=== PATIENT | female | born 1950 | race Caucasian/White ===

== ENCOUNTER → 2020-09-25 | Outpatient (CLI) | payer MEDICARE, BC, OTHER ==
[~2020-09-25] MED LIST: CENT1TAB PO; DILT-65 PO; ELIQ5TAB PO; EQL50TAB2 PO; FLEC1TAB PO; LOSA50TA88 PO; MAGN1CAP PO; METO1TAB32 PO; METO1TAB87 PO; METO25TA4 PO; PRAV20TA2 PO; PROC10TA4 PO; PROT1TAB2 PO; VIT1CAPS11 PO
--- NOTE | 2020-09-25 13:03 | RADONC.CN ---
Radiation Oncology Hx/Consult Radiation Oncology Consult Date of Service: Sep 25, 2020 Pt Identifier Jayna Montenegro is a 70 year old female with a history of right adnexal GIST s/p resection as well as left breast cancer [id number](sn)M0 ER/FL- HER2+ Grade 2. She is s/p neoadjuvant herceptin/taxol followed by lumpectomy and SLNB on 08/26/20. She continues on kadcycla. She is seen for consideration of adjuvant RT. Diagnosis/Treatment History Oncologic History 03/06/20 Screening mammogram with left breast lesion 03/07/20 Biopsy IDC grade 2 ER/FL- HER2+ 03/25/20 MRI with left breast enhancing mass 04/14/20 PET-CT enhancing mass in the right pelvis 04/16/20 MRI pelvis 4 cm enhancing cystic solid right adnexal mass 05/01/20 Resection of pelvic mass revealing GIST CKIT+ 05/20/20 Started neoadjuvant taxol/herceptin 08/05/20 Completed week 12 of taxol/herceptin. 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 Hair starting to regrow. She has some pain under the left arm, comes and goes. No pain or swelling in the breast. No swelling in the LUE. Appetite good and weight stable. Has kadcyla infusions q3w scheduled. Plays golf. Past Medical History: Afib Basal cell cancer GERD Prior GIB HTN Past Surgical History: Appendectomy BL total knee replacement Carpal tunnel release Family History: Father bladder cancer Social History: 20 pack year former smoker quit 1990s Drinks 1-2 drinks 1 day per week Allergies / Meds Allergies: Coded Allergies: No Known Allergies (Unverified , 11/13/14) Home Meds Reported Medications Prochlorperazine Maleate (Prochlorperazine Maleate) 10 Mg Tablet, 10 MG PO Q6H PRN for NAUSEA OR VOMITING, #30 TAB 3 Refills 09/25/20 Metoprolol Succinate (Metoprolol Succinate) 25 Mg Tab.er.24h, 25 MG PO DAILY for 30 Days, #30 TAB 4/29/21 Pantoprazole Sodium (Protonix) 40 Mg Tablet.dr, 40 MG PO DAILY for 30 Days, #30 TAB 09/25/20 Vit D3/Vit K2/[place] Ext (Osteoblox Cf Capsule) 25 Mcg-20 Mcg-250 Mg Capsule, 1 EACH PO, CAP 09/25/20 Vitamin B Complex (Vitamin B Complex) 1 Each Tablet, 1 TAB PO DAILY for 30 Days, #30 TAB 09/25/20 Magnesium Oxide (Magnesium) 500 Mg Capsule, 500 MG PO BID for constipation for 30 Days, #60 CAP 09/25/20 Multivit-Min/FA/Lycopen/Lutein (Centrum Silver Tablet) 1 Each Tablet, 1 TAB PO DAILY for 30 Days, #30 TAB 09/25/20 Pravastatin Sodium (Pravastatin Sodium) 20 Mg Tablet, 20 MG PO QPM for 30 Days, #30 TAB 09/25/20 Flecainide Acetate (Flecainide Acetate) 100 Mg Tablet, 100 MG PO BID for 30 Days, #60 TAB 09/25/20 Losartan Potassium (Losartan Potassium) 50 Mg Tablet, 50 MG PO DAILY, TAB 09/25/20 Diltiazem HCl (Diltiazem 24Hr ER (Xr)) 180 Mg Cap.er.deg, 180 MG PO 09/25/20 Apixaban (Eliquis) 5 Mg Tablet, 5 MG PO BID for 30 Days, #60 TAB 09/25/20 Discontinued Reported Medications Metoprolol Tartrate (Metoprolol Tartrate) 25 Mg Tablet, 25 MG PO BID for 30 Days, #60 TAB 09/25/20 Metoprolol Tartrate (Metoprolol Tartrate) 25 Mg Tablet, 25 MG PO BID for 30 Days, #60 TAB 09/25/20 Review of Systems Constitutional: Denies: Chills, Fever, Night Sweats Eyes: Denies: Pain, Vision change HEENT: Denies: Head Aches, Dysphagia, Sore Throat Skin: Denies: Rash, Lesions, Bruising Pulmonary: Denies: Dyspnea, Cough Cardiovascular: Denies: Chest Pain, Palpitations, Edema Breast: Denies: New Breast Lumps / Masses, Nipple Retraction, Breast Skin Ch anges, Breast Pain or Tenderness Gastrointestinal: Denies: Nausea, Vomiting, Abdominal Pain, Diarrhea Genitourinary: Denies: Dysuria, Frequency, Incontinence Hematologic: Denies: Bruising, Petecchia, Enlarged Lymph Nodes Musculoskeletal: Denies: Neck pain, Back pain Neurological: Reports: Numbness; Denies: Weakness, Incoordination Psych: Reports: Mood Normal; Denies: Memory Issues Vital Signs HT 64" Wt 144 lbs T 97.6 P 71 RR 18 BP 141/81 O2 95% Pain 0 Fatigue 1 General Exam: Positive: Alert, Cooperative, No Acute Distress Eye Exam: Positive: PERRLA, EOMI ENT EXAM: Positive: Mucous membr. moist/pink, Pharynx Normal Neck Exam: Negative: Thyromegaly, Lymphadenopathy Chest Exam: Positive: Normal air movement; Negative: Rales, Rhonchi, Wheezing Heart Exam: Positive: Rate Normal, Regular Rhythm Breast Exam: Positive: Symmetric Bilaterally (Mild ptosis, sebhorreic keratoses and nevi scattered around the chest. Right breast WNL, no masses. Left breast inferolateral palpable surgical site, no nodules. No left axillary nodules. No LUE swelling) Abdomen Exam: Positive: Soft Extremity Exam: Negative: Edema Skin Exam: Positive: Nl turgor and temperature; Negative: Rash Neuro Exam: Positive: Normal Gait, Normal Speech, Cranial Nerves 3-12 NL Psych Exam: Positive: Mental status NL, Mood NL, Memory Intact Diagnostic and Laboratory Diagnostic Review Radiologic images, relevant labs and pathology reports were personally reviewed and discussed with Ms. Montenegro. Assessment and Plan Impression Ms. Montenegro is a 70 year old female with a history of right adnexal GIST s/p resection as well as left breast cancer [id number](sn)M0 ER/FL- HER2+ Grade 2. She is s/p neoadjuvant herceptin/taxol followed by lumpectomy and SLNB on 08/26/20. She continues on kadcycla. She is seen for consideration of adjuvant RT. Stage Stage IA left lower outer quadrant breast cancer [id number](sn)M0 ER/FL- HER2+ grade 2 Performance Status ECOG 0 Plan We had an extensive discussion with Ms. Montenegro regarding the diagnosis at hand and available therapeutic options. She is doing well post-operatively. Hoping to start her golf league soon. She has favorable anatomy for prone technique RT, with the intention to reduce heart and lung dose. She states she was very comfortable during her breast MRI, and so thinks she would tolerate prone RT well. The alternative would be DIBH in this situation. For treatment given her receptor status and residual disease post-chemo, I recommend whole breast RT 40 Gy in 15 fractions followed by 10 Gy in 5 fraction tumor bed boost. We discussed the logistics of receiving radiation therapy in detail including th e need for a 1-time planning session. This can occur next week. We reviewed the side effects of treatment including fatigue, skin reaction, late fibrosis, and cardiopulmonary toxicities. After discussing the risks, benefits and alternatives to radiation therapy, Ms. Montenegro was amenable to pursuing radiotherapy. All questions were answered to the patient's satisfaction. She has q3w chemotherapy in [place], but infusions are only 1 day per cycle, therefore we should be able to easily accommodate any scheduling conflicts. We instructed the patient that if there were any questions,concerns or changes in clinical status in the interim to contact us. Recommendations Left whole breast RT 40 Gy in 15 fractions + 10 Gy in 5 fraction tumor bed boost Prone treatment Simulation in the next week Billing Statement Total time of [40] minutes was spent preparing for the visit [1], obtaining HPI [3], examining the patient [4], reviewing diagnostic tests [4], discussing man agement options [20], coordinating care [1], and writing this note [7]. JACKSON HARP MD Sep 25, 2020 13:03
== END ==
LOC: M ONCR 10:28
PROVIDERS: ATTEND General Practice
DX: C50.912 Malignant neoplasm of unspecified site of left female breast (principal)

== ENCOUNTER 2020-10-24 07:45 | Outpatient (RCR) | payer MEDICARE, BC, OTHER | END 2020-10-27 | LOC: M ONCR 07:45 | PROVIDERS: ATTEND General Practice | DX: C50.512 Malignant neoplasm of lower-outer quadrant of left female breast (principal) ==

== ENCOUNTER 2020-11-19 11:03 | Outpatient (RCR) | payer MEDICARE, BC, OTHER | END 2020-11-26 | LOC: M ONCR 11:03 | PROVIDERS: ATTEND General Practice | DX: C50.512 Malignant neoplasm of lower-outer quadrant of left female breast (principal) ==

== ENCOUNTER → 2021-01-20 | Outpatient (CLI) | payer MEDICARE, BC, OTHER ==
--- NOTE | 2021-01-20 15:09 | RADENCPD ---
Date/Time of Encounter Date of Encounter: Jan 20, 2021 Time of Encounter: 15:05 Encounter Chelsea came in for a skin check today. She reports hyperpigmentation and some swelling of the left breast now ~3 months removed from completion of treatment. On exam there is CTCAE grade 1 hyperpigmentation of the left breast. There is non-tender dependent edema and slight warmth of the left inferior breast, no masses or lumps. No fibrosis. She denies fevers/chills/nausea/vomiting/pain. I explained that this dependent edema and hyperpigmentation are normal sequelae of RT. I encouraged her to elevate the breast as much as able when laying down, use ice, compression (such as sports bra) and judicious use of anti- inflammatories. She has been told by her surgeon to delay her screening MRI, I told her now 3 months out, that I see no contraindication to MRI from the slight edema as confounding changes are highly unlikely at this latency, however I defer to Dr. Taylor. She will see me as scheduled in April 2021, or sooner if needed. JACKSON HARP MD Jan 20, 2021 15:09
== END ==
LOC: M ONCR 13:25
PROVIDERS: ATTEND General Practice
DX: C50.512 Malignant neoplasm of lower-outer quadrant of left female breast (principal); L57.9 Skin changes due to chronic exposure to nonionizing radiation, unspecified; Z92.3 Personal history of irradiation

== ENCOUNTER → 2021-05-20 | Outpatient (CLI) | payer MEDICARE, BC, OTHER ==
--- NOTE | 2021-05-20 11:45 | RADONC ---
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 She is s/p neoadjuvant herceptin/taxol followed by lumpectomy and SLNB on 08/26/20. She then completed adjuvant WBI 40 Gy in 15 fractions + 10 Gy in 5 fraction tumor bed boost 10/14/20-11/19/20. She continues on single agent herceptin. Diagnosis/Treatment History Oncologic History 03/06/20 Screening mammogram with left breast lesion 03/07/20 Biopsy IDC grade 2 ER/ND- HER2+ 03/25/20 MRI with left breast enhancing mass 04/14/20 PET-CT enhancing mass in the right pelvis 04/16/20 MRI pelvis 4 cm enhancing cystic solid right adnexal mass 05/01/20 Resection of pelvic mass revealing GIST CKIT+ 05/20/20 Started neoadjuvant taxol/herceptin 08/05/20 Completed week 12 of taxol/herceptin. 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 No complaints related to systemic therapy at this time. Has been to PT/OT for some upper chest swelling and tenderness, much improved now. She has no swelling in the breast, notes some skin pigment changes, as well as evolution of a mold on the left central breast, darkened in color +/- enlargement. She follows with dermatology in [place], has a history of prior skin cancer, and dysplastic moles removed. She is however, leaving for [facility] in the coming days, plan is to return north in August 2021. She does not have a derm in [place] and would like one. Mammogram earlier this month was negative. Current Therapy Herceptin Stage Stage IA left lower outer quadrant breast cancer [id number](sn)M0 ER/ND- HER2+ grade 2 Social History: 20 pack year former smoker quit 1990s Drinks 1-2 drinks 1 day per week Allergies / Meds Allergies: Coded Allergies: No Known Allergies (Unverified , 11/13/14) Home Meds Reported Medications Prochlorperazine Maleate (Prochlorperazine Maleate) 10 Mg Tablet, 10 MG PO Q6H PRN for NAUSEA OR VOMITING, #30 TAB 3 Refills 09/25/20 Metoprolol Succinate (Metoprolol Succinate) 25 Mg Tab.er.24h, 25 MG PO DAILY for 30 Days, #30 TAB 09/25/20 Pantoprazole Sodium (Protonix) 40 Mg Tablet.dr, 40 MG PO DAILY for 30 Days, #30 TAB 09/25/20 Vit D3/Vit K2/[place] Ext (Osteoblox Cf Capsule) 25 Mcg-20 Mcg-250 Mg Capsule, 1 EACH PO, CAP 09/25/20 Vitamin B Complex (Vitamin B Complex) 1 Each Tablet, 1 TAB PO DAILY for 30 Days, #30 TAB 09/25/20 Magnesium Oxide (Magnesium) 500 Mg Capsule, 500 MG PO BID for constipation for 30 Days, #60 CAP 09/25/20 Multivit-Min/FA/Lycopen/Lutein (Centrum Silver Tablet) 1 Each Tablet, 1 TAB PO DAILY for 30 Days, #30 TAB 09/25/20 Pravastatin Sodium (Pravastatin Sodium) 20 Mg Tablet, 20 MG PO QPM for 30 Days, #30 TAB 09/25/20 Flecainide Acetate (Flecainide Acetate) 100 Mg Tablet, 100 MG PO BID for 30 Days, #60 TAB 09/25/20 Losartan Potassium (Losartan Potassium) 50 Mg Tablet, 50 MG PO DAILY, TAB 09/25/20 Diltiazem HCl (Diltiazem 24Hr ER (Xr)) 180 Mg Cap.er.deg, 180 MG PO 09/25/20 Apixaban (Eliquis) 5 Mg Tablet, 5 MG PO BID for 30 Days, #60 TAB 09/25/20 Review of Systems Review of Systems Constitutional: Denies: Fatigue, Weight Loss Breast: Reports: Breast Skin Changes, Breast Pain or Tenderness; Denies: New Breast Lumps / Masses, Nipple Retraction, Nipple Discharge Pulmonary: Denies: Dyspnea Cardiovascular: Denies: Chest Pain, Edema Gastrointestinal: Denies: Abdominal Pain Musculoskeletal: Denies: Arm pain Neurological: Denies: Weakness, Numbness Psych: Reports: Mood Normal Physical Examination Vital Signs Wt 151.6 lbs T 96.1 P 61 RR 17 BP 120/78 O2 97% Pain 0 Fatigue 0 General Exam: Alert, Cooperative, No Acute Distress Eye Exam: PERRLA EOMI ENT EXAM: Atraumatic Neck Exam: Supple Breast Exam: Symmetric Bilaterally, Skin Changes (Hyperpigmentation of the left breast present); Negative: Lumps or Masses (Palpable left sided loop recorder inferomedially), Nipple Retraction, Nipple Discharge Abdomen Exam: Soft Extremity Exam: Negative: Edema Skin Exam: Nl turgor and temperature, Lesion (On the skin of the left central breast there is a 0.5 cm dark flat irregularly margined mole.) Neuro Exam: Normal Gait, Normal Speech, Cranial Nerves 3-12 NL Psych Exam: Mental status NL Diagnostic and Laboratory Diagnostic Review Radiologic images, relevant labs and pathology reports were personally reviewed and discussed with Ms. Montenegro. Assessment and Plan Impression Assessment Ms. 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 She is s/p neoadjuvant herceptin/taxol followed by lumpectomy and SLNB on 08/26/20. She then completed adjuvant WBI 40 Gy in 15 fractions + 10 Gy in 5 fraction tumor bed boost 10/14/20-11/19/20. She continues on single agent herceptin. She is doing well from a breast cancer standpoint with no evidence of disease on exam. She does have some mild fibrosis of the left breast as well as hyperpigmentation which does not affect symmetry significantly. Her mammogram this month was negative. More concerning today is a mole on the left central breast which she says has been evolving over recent months as she has been more aware of left breast changes s/p cancer treatment. I think the mole looks dysplastic and given her history of prior skin cancers, I think she should have this lesion and a full skin exam in the coming months. Problem is that she is relocating to [place] for the Winter, therefore I will refer her to a pump house technician in the [facility] area to facilitate the evaluation of the mole. She agreed to referral. I will see her back in October 2021 for ongoing follow up and survivorship care. Performance Status ECOG 0 Plan Follow up in 6 months Referral to derm in [place] placed Ms. Montenegro was encouraged to call with questions or concerns in the interim period. Billing Statement Total time of [34] minutes was spent preparing for the visit [2], obtaining HPI [6], examining the patient [6], reviewing diagnostic tests [1], discussing management options [6], coordinating care [6], and writing this note [7]. JACKSON HARP MD May 20, 2021 11:45
== END ==
LOC: M ONCR 10:16
PROVIDERS: ATTEND General Practice
DX: C50.512 Malignant neoplasm of lower-outer quadrant of left female breast (principal); Z92.3 Personal history of irradiation; Z87.891 Personal history of nicotine dependence; Z79.899 Other long term (current) drug therapy

== ENCOUNTER → 2021-11-18 | Outpatient (CLI) | payer MEDICARE, BC, OTHER ==
[~2021-11-18] MED LIST changes: +LOSA50TA28 PO; -LOSA50TA88 PO; -PROC10TA4 PO; +PROC10TA5 PO
== END ==
LOC: M ONCR 09:59
PROVIDERS: ATTEND General Practice
DX: Z08 Encounter for follow-up examination after completed treatment for malignant neoplasm (principal); I89.0 Lymphedema, not elsewhere classified; Z79.01 Long term (current) use of anticoagulants; Z79.899 Other long term (current) drug therapy; Z87.891 Personal history of nicotine dependence; Z92.21 Personal history of antineoplastic chemotherapy; Z92.3 Personal history of irradiation

== ENCOUNTER → 2022-11-18 | Outpatient (CLI) | payer MEDICARE, BC, OTHER | LOC: M ONCR 10:17 | PROVIDERS: ATTEND General Practice | DX: C50.512 Malignant neoplasm of lower-outer quadrant of left female breast (principal); I89.0 Lymphedema, not elsewhere classified; Z71.2 Person consulting for explanation of examination or test findings; Z79.01 Long term (current) use of anticoagulants; Z79.899 Other long term (current) drug therapy; Z87.891 Personal history of nicotine dependence; Z92.29 Personal history of other drug therapy; Z92.3 Personal history of irradiation; Z98.890 Other specified postprocedural states ==

== ENCOUNTER → 2023-11-18 | Outpatient (CLI) | payer MEDICARE, BC | LOC: M ONCR 10:09 | PROVIDERS: ATTEND General Practice | DX: C50.512 Malignant neoplasm of lower-outer quadrant of left female breast (principal); Z71.2 Person consulting for explanation of examination or test findings; Z92.21 Personal history of antineoplastic chemotherapy; Z92.3 Personal history of irradiation; Z98.890 Other specified postprocedural states; Z79.01 Long term (current) use of anticoagulants; Z85.820 Personal history of malignant melanoma of skin; Z87.891 Personal history of nicotine dependence; Z79.899 Other long term (current) drug therapy ==